=== PATIENT | female | born 1995 | race Native Hawaiian/Other Pacific Islander ===

== ENCOUNTER → 2022-01-11 | Outpatient (CLI) | payer OTHER | LOC: M WHC 11:05 | PROVIDERS: ATTEND Advanced Practice Midwife | DX: Z34.83 Encounter for supervision of other normal pregnancy, third trimester (principal) ==

== ENCOUNTER 2022-01-28 13:10 | Inpatient (IN) | payer OTHER ==
[~2022-01-28] VITALS: Ht 172.7 cm; Wt 121.0 kg
[2022-01-28] VITALS (19 sets, daily range): BP systolic 92–149; BP diastolic 48–97
[2022-01-28] MEDS ORDERED: LACTATED RINGER'S 1000 ML IV STA (13:13)
[2022-01-28] MEDS ORDERED: D5W/0.9% SODIUM CHLORIDE 1,000 ML IV SCH (13:15)
[2022-01-28] MEDS ORDERED: LIDOCAINE 1% MDV 20ML VIAL INFIL PRN (13:15)
[2022-01-28] MEDS ORDERED: OXYTOCIN INJ 10 UNITS/ML VIAL (J2590) IV PRN (13:15)
[2022-01-28] MEDS ORDERED: LR 1,000 ML IV SCH (13:15)
[2022-01-28] MEDS ORDERED: OXYTOCIN DRIP 30 UNITS in IV 1 EA IV SCH (13:15)
[2022-01-28] MEDS ORDERED: miSOPROStol 50MCG 1/2 TABLET PO ONE (13:15)
[2022-01-28] MEDS ORDERED: METHYLERGONOVINE MALEATE 0.2 MG/ML VIAL (J2210) IM PRN (13:15)
[2022-01-28] MEDS ORDERED: OXYTOCIN INJ 10 UNITS/ML VIAL (J2590) IM PRN (13:15)
[2022-01-28] MEDS ORDERED: CARBOPROST TROMETHAMINE 250 MCG/ML AMP IM PRN (13:15)
[2022-01-28] MEDS ORDERED: TRANEXAMIC ACID INJection 1,000 MG in NS 100 ML IV PRN (13:15)
[2022-01-28] MEDS ORDERED: OXYTOCIN DRIP 30 UNITS in IV 1 EA IV PRN ×6 (13:15)
[2022-01-28] MEDS ORDERED: INSULIN IV RATE CHANGE DOCUMENTATION ML/HR XX SCH (13:15)
[2022-01-28] MEDS ORDERED: INSULIN REGULAR IN 0.9 % NACL 100 UNIT in IV 1 EA IV SCH ×2 (13:15)
[2022-01-28] MEDS ORDERED: PRENTAB9 PO (13:27)
[2022-01-28] MEDS ORDERED: IRON27TA2 PO (13:27)
[2022-01-28] MEDS ORDERED: VITA100T59 PO (13:27)
[2022-01-28] MEDS ORDERED: SERT-141 PO (13:27)
[2022-01-28] MEDS ORDERED: HOME MED LIST COMPLETE! XX SCH (13:30)
[2022-01-28 14:24] LABS: BASO % 0.3 % (0.0-1.0); EOS # 0.1 10^3/uL (0.0-0.5); EOS % 0.8 % (0.0-3.0); HEMATOCRIT 32.3 % (36.0-47.0); HEMOGLOBIN 10.7 g/dl (12.0-15.5); LYMPH # 2.5 10^3/uL (1.5-5.0); LYMPH % 20.8 % (24.0-44.0); MEAN CORPUSCULAR HEMOGLOBIN 28.6 pg (27.0-33.0); MEAN CORPUSCULAR HGB CONC 33.1 g/dl (32.0-36.5); MEAN CORPUSCULAR VOLUME 86.4 fl (80.0-96.0); MONO % 8.3 % (2.0-8.0); NEUTROPHILS # 8.3 10^3/uL (1.5-8.5); NEUTROPHILS % 69.4 % (36.0-66.0); PLATELET COUNT, AUTOMATED 302 10^3/uL (150-450); RED BLOOD COUNT 3.74 10^6/uL (4.00-5.40); WHITE BLOOD COUNT 11.9 10^3/uL (4.0-10.0)
[2022-01-28 15:04] LABS: ALT/SGPT 11 U/L (12-78); BILIRUBIN,TOTAL 0.2 MG/DL (0.2-1.0); GLOMERULAR FILTRATION RATE > 60.0 (>60); LDH LACTATE DEHYDROGENASE 150 U/L (84-246); URIC ACID 3.9 MG/DL (2.6-6.0)
[2022-01-28] MEDS ORDERED: PENICILLIN G POTASSIUM IV 5 MU in D5W MINI-BAG PLUS 100 ML IV STA (15:06)
[2022-01-28] MEDS: NS 1,000 ML IV SCH (15:25)
[2022-01-28] MEDS: PENICILLIN G POTASSIUM IV 2.5 MU in IV 1 EA IV SCH ×2 (19:11→23:12)
[2022-01-28] MEDS ORDERED: miSOPROStol 50MCG 1/2 TABLET PO SCH (20:00)
[2022-01-28] MEDS ORDERED: FENTANYL 2MCG/ML ROPIVACAINE 0.2% IN 0.9% NACL 100ML IVBAG As Ordered ONE (22:20)
[2022-01-28] MEDS ORDERED: ONDANSETRON 4MG/2ML VIAL IV PRN (23:10)
[2022-01-28] MEDS ORDERED: FENTANYL/ROPIVACAINE/NACL BAG 100 ML EPIDURAL SCH (23:10)
[2022-01-28] MEDS ORDERED: LACTATED RINGER'S 1000 ML IV PRN (23:10)
[2022-01-28] MEDS ORDERED: diphenhydrAMINE 50MG/ML VIAL (J1200) IV PRN (23:10)
[2022-01-28] MEDS ORDERED: ePHEDrine SULFATE 25 MG/5 ML(5MG/ML) SYRINGE IV PRN (23:10)
[2022-01-28] MEDS ORDERED: EPIDURAL COMMENT XX SCH (23:10)
[2022-01-28] MEDS ORDERED: NALOXONE INJ 0.4MG/1ML VIAL (J2310 PER 1MG) IV PRN (23:10)
[2022-01-28] MEDS ORDERED: EPIDURAL/PCA KEYS XX PRN (23:10)
[2022-01-28] MEDS ORDERED: REFRIGERATOR IV KEYS XX PRN (23:10)
[2022-01-29] VITALS (18 sets, daily range): BP systolic 92–141; BP diastolic 54–86
[2022-01-29] MEDS: NS 1,000 ML IV SCH (00:17)
[2022-01-29] MEDS ORDERED: AZITHROMYCIN INJ 500 MG, VIAL MATE ADAPTER 1 EACH in NS 250 ML IV ONE (02:20)
[2022-01-29] MEDS ORDERED: BICITRA 30ML SOLN UDC PO ONE (02:20)
[2022-01-29] MEDS ORDERED: ceFAZolin SOD 2 GM in IV 1 EA IV ONE (02:20)
[2022-01-29] MEDS ORDERED: ceFAZolin 2 GM/D5W 50 ML IV BAG (J0690 PER 500MG) As Ordered ONE (02:23)
[2022-01-29] MEDS ORDERED: AZITHROMYCIN INJ 500MG VIAL As Ordered ONE (02:24)
[2022-01-29] MEDS ORDERED: LIDOCAINE 2% W/EPINEPHRINE 20ML VIAL **PRES FREE As Ordered ONE (02:25)
[2022-01-29] MEDS ORDERED: OXYTOCIN INJ 10 UNITS/ML VIAL (J2590) As Ordered ONE (02:26)
[2022-01-29] MEDS ORDERED: BICITRA 30ML SOLN UDC As Ordered ONE (02:33)
[2022-01-29] MEDS ORDERED: ONDANSETRON 4MG/2ML VIAL As Ordered ONE (03:05)
[2022-01-29] MEDS ORDERED: dexameTHASONE 4 MG/ML 1ML VIAL (J1100 PER 1MG) As Ordered ONE (03:05)
[2022-01-29] MEDS ORDERED: TRANEXAMIC ACID 100 MG/ML 10ML VIAL As Ordered ONE (03:08)
[2022-01-29] MEDS ORDERED: MORPHINE PRES-FREE INJ 10 MG/10 ML VIAL As Ordered ONE (03:13)
[2022-01-29] MEDS ORDERED: METOCLOPRAMIDE INJ 10MG/2ML VIAL (J2765 PER 1) As Ordered ONE (03:17)
[2022-01-29] MEDS ORDERED: KETOROLAC 60MG 2ML VIAL As Ordered ONE (03:23)
[2022-01-29 03:40] LABS: CORD GAS ABE V -5.4; CORD GAS HCO3 V 21.6 MEQ/L; CORD GAS O2 SAT V 78.2 %; CORD GAS PCO2 V 47.8 mmHg; CORD GAS PH V 7.273 UNITS; CORD GAS PO2 V 35.5 mmHg; CORD GAS SBC V 19.6 MEQ/L; CORD GAS TCO2 V 23.1 MEQ/L
[2022-01-29 03:43] LABS: CORD GAS ABE A -4.7; CORD GAS O2 SAT A 29.9 %; CORD GAS PCO2 A 53.1 mmHg; CORD GAS PH A 7.254 UNITS; CORD GAS PO2 A 15.7 mmHg; CORD GAS SBC A 19.2 MEQ/L; CORD GAS TCO2 A 24.6 MEQ/L
[2022-01-29] MEDS ORDERED: BUPIVACAINE HCL 0.25% 10ML VIAL As Ordered ONE (03:43)
[2022-01-29] MEDS ORDERED: BUPIVACAINE HCL 0.25% 10ML VIAL SC STA (03:45)
[2022-01-29] MEDS ORDERED: diphenhydrAMINE 50MG/ML VIAL (J1200) IV PRN (03:50)
[2022-01-29] MEDS ORDERED: NALOXONE INJ 0.4MG/1ML VIAL (J2310 PER 1MG) IV PRN ×2 (03:50)
[2022-01-29] MEDS ORDERED: ONDANSETRON 4MG/2ML VIAL IV PRN ×2 (03:50→04:00)
[2022-01-29] MEDS ORDERED: METOCLOPRAMIDE INJ 10MG/2ML VIAL (J2765 PER 1) IV PRN (03:50)
[2022-01-29] MEDS ORDERED: MOM 30ML SUSPENSION UDC PO PRN (04:00)
[2022-01-29] MEDS ORDERED: ACETAMINOPHEN 500 MG TAB PO PRN (04:00)
[2022-01-29] MEDS ORDERED: OXYTOCIN DRIP 30 UNITS in IV 1 EA IV SCH (04:00)
[2022-01-29] MEDS ORDERED: MEASLES,MUMPS,RUBELLA VACCINE INJ (MMR-II) (90707) SC SCH (04:00)
[2022-01-29] MEDS ORDERED: ONDANSETRON 4MG TAB PO PRN (04:00)
[2022-01-29] MEDS ORDERED: SIMETHICONE 80MG CHEW TAB PO PRN (04:00)
[2022-01-29] MEDS ORDERED: OXYTOCIN 30 UNITS IN 0.9% NaCl 500ML IV BAG (J2590) As Ordered ONE (04:09)
[2022-01-29] MEDS ORDERED: MEPERIDINE INJ 25 MG/ML VIAL (J2175) IV PRN (04:25)
[2022-01-29] MEDS ORDERED: HYDROMORPHONE HCL 0.5 MG/ 0.5 ML SYRINGE (J1170 PER 1) IV PRN (04:25)
[2022-01-29] MEDS ORDERED: oxyCODONE 5MG TAB PO PRN (04:25)
[2022-01-29] MEDS ORDERED: fentaNYL 100 MCG/2 ML INJECTION IV PRN (04:25)
[2022-01-29] MEDS: oxyCODONE 5MG TAB PO PRN ×3 (05:58→20:05)
[2022-01-29] MEDS ORDERED: PRENATAL VITAMINS CHEWABLE TABLET PO SCH (09:00)
[2022-01-29] MEDS: PRENATAL VITAMINS CHEWABLE TABLET PO SCH (10:06)
[2022-01-29] MEDS: SERTRALINE HCL 50 MG TAB PO SCH (10:06)
[2022-01-29] MEDS: DOCUSATE SODIUM 100MG CAPSULE PO SCH ×2 (10:06→20:04)
[2022-01-29] MEDS: KETOROLAC 30 MG/ML 1ML VIAL IV SCH ×3 (10:07→22:04)
[2022-01-30 03:09] VITALS: BP 101/51
[2022-01-30] MEDS: oxyCODONE 5MG TAB PO PRN ×3 (04:29→20:03)
[2022-01-30 06:00] VITALS: BP 110/61
[2022-01-30] MEDS: IBUPROFEN 800 MG TAB PO SCH ×3 (06:26→21:56)
[2022-01-30] MEDS: PRENATAL VITAMINS CHEWABLE TABLET PO SCH (08:45)
[2022-01-30] MEDS: DOCUSATE SODIUM 100MG CAPSULE PO SCH ×2 (08:45→20:02)
[2022-01-30] MEDS: SERTRALINE HCL 50 MG TAB PO SCH (08:45)
[2022-01-30 09:23] LABS: HEMATOCRIT 24.2 % (36.0-47.0); MEAN CORPUSCULAR HEMOGLOBIN 29.1 pg (27.0-33.0); MEAN CORPUSCULAR HGB CONC 32.2 g/dl (32.0-36.5); MEAN CORPUSCULAR VOLUME 90.3 fl (80.0-96.0); PLATELET COUNT, AUTOMATED 239 10^3/uL (150-450); RED BLOOD COUNT 2.68 10^6/uL (4.00-5.40); WHITE BLOOD COUNT 14.2 10^3/uL (4.0-10.0)
[2022-01-30 09:27] LABS: HEMOGLOBIN 7.8 g/dl (12.0-15.5)
[2022-01-30 09:53] VITALS: BP 116/61
[2022-01-30 14:00] VITALS: BP 145/72
[2022-01-30 18:00] VITALS: BP 123/71
[2022-01-30 22:00] VITALS: BP 118/64
[2022-01-31] MEDS: oxyCODONE 5MG TAB PO PRN ×2 (03:36→12:34)
[2022-01-31 05:46] VITALS: BP 133/61
[2022-01-31] MEDS: IBUPROFEN 800 MG TAB PO SCH (05:59)
[2022-01-31] MEDS ORDERED: IBUP80TA PO (07:13)
[2022-01-31] MEDS ORDERED: ACET-683 PO (07:13)
[2022-01-31] MEDS ORDERED: OXYC-517 PO (07:13)
[2022-01-31] MEDS: PRENATAL VITAMINS CHEWABLE TABLET PO SCH (08:05)
[2022-01-31] MEDS: SERTRALINE HCL 50 MG TAB PO SCH (08:05)
[2022-01-31] MEDS: DOCUSATE SODIUM 100MG CAPSULE PO SCH (08:05)
== END 2022-01-31 13:05 | disposition home or self-care (01) | DRG 773 ==
LOC: M LDI 13:10 → M OBS 01-29 06:00
PROVIDERS: ADMIT Obstetrics & Gynecology; ATTEND Obstetrics & Gynecology
PROC: 3E0P7GC Introduction of Other Therapeutic Substance into Female Reproductive, Via Natural or Artificial Opening (ICD-10-PCS; 2022-01-28)
PROC: 10D00Z1 Extraction of Products of Conception, Low, Open Approach (ICD-10-PCS; principal; 2022-01-29 03:49)
DX: O24.424 Gestational diabetes mellitus in childbirth, insulin controlled (principal); O99.344 Other mental disorders complicating childbirth; F32.A Depression, unspecified; O99.02 Anemia complicating childbirth; D64.9 Anemia, unspecified; O99.214 Obesity complicating childbirth; E66.9 Obesity, unspecified; Z3A.38 38 weeks gestation of pregnancy; O99.824 Streptococcus B carrier state complicating childbirth; O32.1XX0 Maternal care for breech presentation, not applicable or unspecified; Z37.0 Single live birth